=== PATIENT | male | born 1935 | race Caucasian/White ===

== ENCOUNTER 2021-10-21 17:39 | Inpatient (IN) | payer MEDICARE ==
[~2021-10-21] VITALS: Ht 177.8 cm; Wt 91.8 kg
[2021-10-21 17:42] VITALS: BP 96/46
[2021-10-21 18:12] LABS: ABSOLUTE MONOCYTES 0.7 thou/uL (0.0-1.2); ABSOLUTE NEUTROPHILS 8.7 thou/uL (1.6-8.1); BASOPHILS 0.4 %; HEMATOCRIT 30.7 % (42.0-52.0); HEMOGLOBIN 9.9 gm/dL (14.0-18.0); LYMPHOCYTES 9.2 %; MCH 29.5 pg (26.0-34.0); MCHC 32.2 g/dL (28.0-37.0); MCV 91.8 fL (80.0-100.0); MONOCYTES 6.9 %; MPV 7.7 fl. (7.2-11.1); NUCLEATED RBCS 0 /100WBC; PLATELET COUNT* 241 thou/uL (150-400); POLYS 83.5 %; RBC 3.34 mil/uL (4.50-6.00); RDW-CV 13.3 % (10.5-14.5); WBC 10.5 thou/uL (4.0-11.0)
[2021-10-21 18:21] LABS: CALCIUM 9.1 mg/dL (8.5-10.1); CREATININE 3.6 mg/dL (0.6-1.3); POTASSIUM 4.1 mmol/L (3.5-5.1)
[2021-10-21] MEDS ORDERED: NORVASC10 MG PO (18:24)
[2021-10-21] MEDS ORDERED: ASA81BEC PO (18:24)
[2021-10-21] MEDS ORDERED: COLACE100 MG PO (18:25)
[2021-10-21] MEDS ORDERED: PLAVIX 75 MG TA75 MG PO (18:25)
[2021-10-21] MEDS ORDERED: CALCIUM + VITA1 EACH PO (18:25)
[2021-10-21] MEDS ORDERED: DEPAKOTE250 MG PO (18:26)
[2021-10-21] MEDS ORDERED: NEURONTIN300 MG PO ×2 (18:26→18:27)
[2021-10-21] MEDS ORDERED: FLOMAX0.4 MG PO (18:26)
[2021-10-21] MEDS ORDERED: NEXIUM40 MG PO (18:26)
[2021-10-21] MEDS ORDERED: NEURONTIN 400M400 M2 PO (18:27)
[2021-10-21] MEDS ORDERED: GLIPIZIDE 10 MG10 MG PO (18:27)
[2021-10-21] MEDS ORDERED: HUMALOG100 UNIT/1 SUBQ (18:28)
[2021-10-21] MEDS ORDERED: HYDRALAZINE HC100 MG PO (18:28)
[2021-10-21] MEDS ORDERED: ISOSORBIDE MON120 MG PO (18:29)
[2021-10-21] MEDS ORDERED: LANTUS SOL100 UNIT/1 SUBQ (18:30)
[2021-10-21] MEDS ORDERED: SIMVASTATIN80 MG PO (18:31)
[2021-10-21] MEDS ORDERED: TRAMADOL 50 MG50 MG PO (18:31)
[2021-10-21] MEDS ORDERED: LEVOFLOXACIN500 MG PO (18:31)
[2021-10-21] MEDS ORDERED: KLOR-CON M2020 MEQ PO (18:31)
[2021-10-21 18:34] LABS: ALBUMIN 2.1 g/dL (3.4-5.0); TOTAL BILIRUBIN 0.4 mg/dL (<0.1-1.0); TOTAL PROTEIN 7.6 g/dL (6.4-8.2)
[2021-10-21 23:13] LABS: URINE BILIRUBIN NEGATIVE (Negative); URINE BLOOD 1+ (Negative); URINE CLARITY CLEAR; URINE COLOR YELLOW; URINE GLUCOSE-RANDOM NEGATIVE (Negative); URINE KETONES TRACE (Negative); URINE PROTEIN 1+ (Negative); URINE UROBILINOGEN 0.2 E.U./dl (0.2-1.0)
[2021-10-21 23:14] LABS: URINE LEUKOCYTES-REFLEX 3+ (Negative); URINE NITRITE-REFLEX POSITIVE (Negative)
[2021-10-21 23:20] VITALS: BP 114/41
[2021-10-21 23:22] LABS: CASTS None Seen /LPF (None Seen); CRYSTALS None Seen /LPF (None Seen); MUCUS 0-3 Light strn/LPF (None Seen); SQUAMOUS 4-10 Moderate /LPF (0-3); URINE RBC 3-10 Few /HPF (0-2); URINE WBC-REFLEX >25 Many /HPF (0-5)
[2021-10-21 23:45] VITALS: BP 119/47
--- NOTE | 2021-10-21 23:45 | NUR ---
RECEIVED REPORT FROM ER, PT TO ROOM. PT ORIENTED TO SELF ONLY. COULD NOT SAY . PT STIFF WITH DIFFICULTY IN MOVING HIM. INCONT OF URINE. NO SKIN BREAK DOWN TO BUTTOCKS. WOUND NOTED TO LATERAL RT HEEL. HOB ELEVATED. HAVING FREQ MOIST NON-PROD COUGH, RA SAT 93%. TELEMETRY APPLIED SHOWING A-FIB.
--- NOTE | 2021-10-22 06:14 | NUR ---
AWAKE FREQ TONIGHT. TAKING PO FLUIDS WELL. NO CHANGE IN ASSESSMENT.
[2021-10-22 08:00] VITALS: BP 196/61
--- NOTE | 2021-10-22 09:31 | EKG ---
[place] [address] ELECTROCARDIOGRAM REPORT Name: SANDRA SIDDIQI Room: [address] ADM IN [facility].#: [id number] Admission: 10/21/21 Attend Phys: Varun Bradshaw Discharge: Date of : 37 Date of Service: 10/21/21 1740 Report #: [id number] THIS REPORT FOR: //name// [facility] ED Test Date: 2021-10-21 Test Time: 17:40:10 Pat Name: SANDRA SIDDIQI Department: Room: [facility] Gender: M Rv Detailer: : 1935 Requested By: Xavier Burk Order Number: [id number] MD: Jose Rafael Haider Measurements Intervals [place] Rate: 102 P: TN: QRS: -20 QRSD: 91 T: 136 QT: 316 QTc: 412 Interpretive Statements Normal Sinus Rhythm with APCs Borderline left axis deviation Borderline repolarization abnormality No previous ECG available for comparison Electronically Signed On 10-22-2021 9:30:59 PROFILE SAW OPERATOR by Jose Rafael Haider [email or web address] <ELECTRONICALLY SIGNED> By: Brigitte Haider MD, LOCATED WITHIN [facility] 10/22/21 0930 1740 1740 Brigitte Haider MD, LOCATED [facility] /EPI
[2021-10-22 11:45] VITALS: BP 145/42
[2021-10-22 16:08] VITALS: BP 116/56
[2021-10-22 16:13] LABS: ABSOLUTE BASOPHILS 0.1 thou/uL (0.0-0.2); ABSOLUTE MONOCYTES 0.6 thou/uL (0.0-1.2); ABSOLUTE NEUTROPHILS 8.5 thou/uL (1.6-8.1); BASOPHILS 0.5 %; EOSINOPHILS 0.4 %; HEMATOCRIT 27.7 % (42.0-52.0); HEMOGLOBIN 9.1 gm/dL (14.0-18.0); LYMPHOCYTES 10.1 %; MCH 29.9 pg (26.0-34.0); MCHC 32.7 g/dL (28.0-37.0); MCV 91.3 fL (80.0-100.0); MONOCYTES 5.9 %; MPV 7.9 fl. (7.2-11.1); NUCLEATED RBCS 0 /100WBC; PLATELET COUNT* 226 thou/uL (150-400); POLYS 83.1 %; RBC 3.04 mil/uL (4.50-6.00); RDW-CV 13.3 % (10.5-14.5); WBC 10.3 thou/uL (4.0-11.0)
[2021-10-22 16:26] LABS: CALCIUM 8.6 mg/dL (8.5-10.1); CREATININE 3.1 mg/dL (0.6-1.3); POTASSIUM 3.6 mmol/L (3.5-5.1); TOTAL BILIRUBIN 0.4 mg/dL (<0.1-1.0); TOTAL PROTEIN 7.1 g/dL (6.4-8.2)
--- NOTE | 2021-10-22 19:57 | NUR ---
Assumed care of patient 0730. Patient is somewhat angry and confused. Refused to eat any of his meals today. Drinks coffee and tea. Ate very little when fed. Patient doesnt move much on his on. Reposition every 2 hours. Patient is incontinent of urine. Continue to check accuchecks. Quiet day.
[2021-10-22 20:00] VITALS: BP 142/76
[2021-10-23 00:12] VITALS: BP 177/63
--- NOTE | 2021-10-23 05:40 | NUR ---
ASSUMED PT CARE AT APPROX 1930. PT IS AWAKE, ORIENTED TO SELF ONLY, CONFUSED MOST OF THE TIME AND FORGETFUL. PT IS NOT IN DISTRESS, NO DESATURATIONS NOTED ON ROOM AIR. PT IS TRACING AFIB ON THE [employer] [facility]. PT IS INCONTINENT OF BLADDER AND BOWEL, PT IS KEPT CLEAN AND DRY, POSITION CHANGES DONE. PT IS CLOSELY MONITORED, HIGH FALL PRECAUTIONS IN PLACE.
[2021-10-23 05:48] VITALS: BP 145/56
[2021-10-23 08:00] VITALS: BP 167/58
--- NOTE | 2021-10-23 08:58 | NUR ---
Patient refuses to eat. Insulin not given.
[2021-10-23 09:21] LABS: HEMATOCRIT 29.6 % (42.0-52.0); HEMOGLOBIN 9.5 gm/dL (14.0-18.0); RBC 3.15 mil/uL (4.50-6.00); RDW-CV 13.7 % (10.5-14.5); WBC 10.9 thou/uL (4.0-11.0)
[2021-10-23 09:39] LABS: CALCIUM 8.7 mg/dL (8.5-10.1); CREATININE 2.9 mg/dL (0.6-1.3); POTASSIUM 3.6 mmol/L (3.5-5.1)
[2021-10-23 11:35] VITALS: BP 124/45
[2021-10-23 16:08] VITALS: BP 104/56
--- NOTE | 2021-10-23 19:53 | NUR ---
Assumed care at 0730. Patient quiet, confused. Knows his name. Unaware of where he is or date/time. Patients iv fluids decreased to 75ml per hour today. Patient is a poor eater. Will be getting supplements 3 times a day. Did drink coffee, tea, and orange juice. Reposition every 2 hours, and diaper changed every 2 hours. No bm today. Patient is a DNR.
[2021-10-23 20:00] VITALS: BP 157/56
[2021-10-24] VITALS: BP 155/58
[2021-10-24 04:00] VITALS: BP 152/55
[2021-10-24 05:45] LABS: HEMATOCRIT 24.5 % (42.0-52.0); HEMOGLOBIN 7.9 gm/dL (14.0-18.0); MCH 29.9 pg (26.0-34.0); MCHC 32.2 g/dL (28.0-37.0); MCV 92.7 fL (80.0-100.0); MPV 8.1 fl. (7.2-11.1); RBC 2.64 mil/uL (4.50-6.00); RDW-CV 13.7 % (10.5-14.5)
[2021-10-24 06:04] LABS: CALCIUM 7.8 mg/dL (8.5-10.1); CREATININE 2.6 mg/dL (0.6-1.3); POTASSIUM 3.7 mmol/L (3.5-5.1)
--- NOTE | 2021-10-24 07:51 | NUR ---
ASSUMED PT CARE AT APPROX 1930. PT IS AWAKE, ORIENTED TO SELF AND SOMETIMES TO PLACE-IS CONFUSED MOST OF THE TIME. PT IS NOT IN DISTRESS, NO DESATURATIONS NOTED ON ROOM AIR. PT IS INCONTINENT-PT IS KEPT CLEAN AND DRY AND IS TURNED FREQUENTLY. NO ACUTE CHANGES THIS SHIFT. CALL LIGHT WITHIN REACH. HOURLY ROUNDING DONE FOR PT SAFETY. HIGH FALL PRECAUTIONS IN PLACE.
[2021-10-24 08:00] VITALS: BP 122/47
--- NOTE | 2021-10-24 09:15 | NUR ---
Nutrition: Pt admitted with ARF. Consult for poor appetite. Pt with h/o dementia, HTN. He is confused. Chopped diet ordered. Nepro oral supplement is ordered. Pressure ulcer on Rt lateral heel. Labs: Na 150, BG 98, albumin 2, prealb 10.9, BUN 47, cr 2.6, GFR 24. MedS: insulin, glipizide, aspirin. Continue Nepro supplement. Encourage good meal intake. Wt: 193#. Will follow wts and po intake. Mild risk at this time. Will follow up 10/28/21.
--- NOTE | 2021-10-24 11:37 | NUR ---
WOUND NURSE: PATIENT SEEN TO ADDRESS WOUND ON RIGHT HEEL. ACHILLES WITH OLD SURGICAL SCAR AND SUSPECTED DFU ON THE HEEL MEASURING 3.3 X 2.2 CM. WOUND BED WITH SOFT BLACKENED ESCHAR IN PLACE AND SMALL AMOUNT OF DARK RED DRAINAGE. CLEANSED WITH SOAP AND WATER, RINSED, THEN PATTED DRY. APPLIED SKIN PREP TO INTACT PERIWOUND TISSUE. APPLIED AQUACEL AG UNDER ABD. WRAPPED WITH KERLEX ROLL GAUZE UNDER LIGHT VAIBHAV WRAP. PATIENT IS CONFUSED AND NOT TEACHEABLE. RECOMMENDED AND DR. SMITH APPROVED PODIATRY CONSULT WITH DR. CORREIA. DR. CORREIA NOTIFIED BY ME.
[2021-10-24 12:53] VITALS: BP 146/56
--- NOTE | 2021-10-24 13:40 | NUR ---
CM ASSESSMENT: PT A&O TO SELF AND HAS DX OF DEMENTIA. CM CONTACTED PT'S SON/MARILU MCGINNIS AND HE INFORMS THAT THE PT CURRENTLY RESIDES AT [facility] ON THE MEMORY CARE UNIT. PT USES A WHEELCHAIR FOR MOBILITY. PLAN IS FOR THE PT TO RETURN TO [facility]ORY CARE UNIT AT D/C. SHOULD PT NEED IV ABT'S AT D/C PT WILL NEED TO D/C TO SNF THEY ARE UNABLE TO DISPENSE IV ABT'S ON THE MEMORY CARE UNIT. CM CALLED AND LEFT A VOICEMAIL WITH [facility] ADMISSIONS TO DISCUSS DC PLANNING FOR THE PT. CM WILL REMAIN AVAILABLE TO ASSIST AND FOLLOW NEEDED. [facility] PHONE: [phone]
[2021-10-24 14:07] LABS: HEMATOCRIT 25.8 % (42.0-52.0); HEMOGLOBIN 8.6 gm/dL (14.0-18.0)
[2021-10-24 16:42] VITALS: BP 172/58
[2021-10-24 20:00] VITALS: BP 107/53
[2021-10-25 00:41] VITALS: BP 121/71
[2021-10-25 04:26] VITALS: BP 153/52
--- NOTE | 2021-10-25 05:23 | NUR ---
ASSUMED PT CARE AT APPROX 1930. PT IS AWAKE, ORIENTED TO SELF, CONFUSED MOST OF THE TIME. PT IS NOT IN DISTRESS, NO DESATURATIONS NOTED ON ROOM AIR. PT IS INCONTINENT-PT IS KEPT CLEAN AND DRY AND IS TURNED FREQUENTLY. NO ACUTE CHANGES THIS SHIFT. CALL LIGHT WITHIN REACH. HOURLY ROUNDING DONE FOR PT SAFETY. HIGH FALL PRECAUTIONS IN PLACE.
[2021-10-25 08:00] VITALS: BP 121/31
--- NOTE | 2021-10-25 10:15 | NUR ---
PLAN OF CARE: PLAN REMAINS FOR THE PT TO RETURN TO HIS MEMORY CARE UNIT AT THE [facility], [place], OPERATED BY [facility] WHEN MEDICALLY STABLE. NO OTHER CM D/C PLANNING NEEDS ANTICIPATED. CM WILL REMAIN AVAILABLE TO ASSIST AND FOLLOW NEEDED.
[2021-10-25 12:21] VITALS: BP 158/64
[2021-10-25 17:15] VITALS: BP 148/49
[2021-10-25 21:04] VITALS: BP 146/56
[2021-10-26 02:25] VITALS: BP 155/54
[2021-10-26 04:00] VITALS: BP 142/52
[2021-10-26 04:51] LABS: HEMATOCRIT 21.8 % (42.0-52.0); HEMOGLOBIN 7.1 gm/dL (14.0-18.0); MCH 30.6 pg (26.0-34.0); MCHC 32.6 g/dL (28.0-37.0); MCV 93.7 fL (80.0-100.0); MPV 8.1 fl. (7.2-11.1); RBC 2.33 mil/uL (4.50-6.00); RDW-CV 14.3 % (10.5-14.5); WBC 8.8 thou/uL (4.0-11.0)
[2021-10-26 05:13] LABS: CALCIUM 7.7 mg/dL (8.5-10.1); CREATININE 2.2 mg/dL (0.6-1.3)
[2021-10-26 05:22] LABS: POTASSIUM 2.9 mmol/L (3.5-5.1)
[2021-10-26 08:00] VITALS: BP 145/57
--- NOTE | 2021-10-26 08:37 | NUR ---
PT IS ABLE TO COMMUNICATE HIS NEEDS TO STAFF WITH SOME DIFFICULTY; HE IS CONFUSED AND IMPULSIVE. PT HAS ALSO BEEN UNCOOPERATIVE ON SEVERAL OCCASIONS DURING WALL CLEANER; REFUSING MEDICATIONS, TURNS, AND CARES. HE HAS DENIED THE NEED FOR PAIN MEDICATION UP TO 0700 THIS MORNING. POSSIBLE MRI OF HIS RT FOOT LATER TODAY.
--- NOTE | 2021-10-26 09:56 | NUR ---
WOUND NURSE: PATIENT SEEN FOR FOLLOW UP DRESSING CHANGE TO RIGHT HEEL. INSIGNIFICANT CHANGE IN WOUND CHARACTERISTICS. PRESENTS WITH BLACKENED ESCHAR, SCANT LIGHT BROWN DRAINAGE ON THE OLD DRESSING. NO PERIWOUND REDNESS, WARMTH, OR INDURATION. CLEANSED WITH SOAP AND WATER, RINSED, THEN PATTED DRY. SKIN PREP TO PERIWOUND. APPLIED AQUACEL AG UNDER ABD, THEN WRAPPED WITH KERLEX ROLL GAUZE UNDER LIGHT VAIBHAV WRAP. PATIENT REMAINS NONTEACHEABLE. HEELS PLACED OFF MATTRESS USING PILLOW.
--- NOTE | 2021-10-26 10:42 | NUR ---
PLAN OF CARE: PLAN FOR THE PT TO RETURN TO HIS MEMORY CARE BED AT [facility] WHEN MEDICALLY STABLE. OTH CM D/C PLANNING NEEDS TBD. CM WILL REMAIN AVAILABLE TO ASSIST AND FOLLOW NEEDED.
[2021-10-26 11:08] VITALS: BP 120/52
[2021-10-26 17:07] VITALS: BP 148/58
[2021-10-26 21:09] VITALS: BP 151/54
[2021-10-26 22:21] LABS: MAGNESIUM 1.7 mg/dL (1.8-2.4); POTASSIUM 3.6 mmol/L (3.5-5.1)
[2021-10-27 00:20] VITALS: BP 114/72
[2021-10-27 04:39] VITALS: BP 100/49
--- NOTE | 2021-10-27 05:32 | NUR ---
PT IS ABLE TO COMMUNICATE HIS NEEDS TO STAFF WITH SOME DIFFICULTY; HE IS FORGETFUL AND CONFUSED OFTEN. HE HAS BEEN UNCOOPERATIVE, REFUSING CARES AND MEDS, A FEW TIMES OVERNIGHT. HE HAS DENIED THE NEED FOR PAIN MEDICATION UP TO THIS TIME.
[2021-10-27 05:56] LABS: HEMATOCRIT 21.8 % (42.0-52.0); HEMOGLOBIN 7.2 gm/dL (14.0-18.0); MCHC 33.2 g/dL (28.0-37.0); MCV 90.4 fL (80.0-100.0); RBC 2.41 mil/uL (4.50-6.00); RDW-CV 13.4 % (10.5-14.5); WBC 8.6 thou/uL (4.0-11.0)
[2021-10-27 06:11] LABS: CALCIUM 7.6 mg/dL (8.5-10.1); CREATININE 2.2 mg/dL (0.6-1.3); POTASSIUM 3.7 mmol/L (3.5-5.1)
[2021-10-27 08:17] VITALS: BP 144/51
[2021-10-27 12:00] VITALS: BP 145/47
[2021-10-27 16:00] VITALS: BP 129/46
--- NOTE | 2021-10-27 18:44 | NUR ---
PT IS ONLY A&O TO SELF, PT IS ON RM . PT HAS LT UPPER ARM IV. PT HAS WOUND ON RT HEAL OF FOOT. PT NEEDS STOOL SAMPLE DID NOT HAVE A BM THIS SHIFT. PT IS RESTING IN BED WITH TV ON AND CALL LIGHT IN REACH.
[2021-10-27 20:44] VITALS: BP 156/37
[2021-10-28 01:01] VITALS: BP 178/74
[2021-10-28 05:28] VITALS: BP 150/55
--- NOTE | 2021-10-28 05:52 | NUR ---
PT ALERT TO SELF, SITUATION. Q2 TURN, BEDREST, FALL PRECAUTIONS IN PLACE. HE IS COMPLETELY INCONTINENT OF B/B. NO BM THIS SHIFT. HE IS A MAX ASSIST IN BED AND IS SOMEWHAT RELUCTANT TO PARTICIPATE IN CARE (BLOOD PRESSURE CUFF, MEDS ETC) BUT [facility] HE RECEIVED ALL MEDS SCHEDULED.
[2021-10-28 07:59] VITALS: BP 105/51
--- NOTE | 2021-10-28 10:10 | NUR ---
NUTRITION: REASSESSMENT. DISCHARGE PLANNED FOR TODAY, PER PROGRESS NOTES. WT UP SOME, 202#. LABS: BG 226-149, ALB 2, PREALB 10.9. UTI RESOLVED. ULCER ON HEEL. CONTINUE TO ENCOURAGE GOOD MEAL INTAKE, GOOD HYDRATION, HBV PROTEIN AT MEALS. ON INSULIN. MILD RISK.
[2021-10-28 12:10] VITALS: BP 138/77
--- NOTE | 2021-10-28 13:53 | NUR ---
PHYSICIAN INFORMS OF PLAN FOR THE PT TO D/C HOME TODAY. HOWEVER RN IN-CHARGE OF PT INFORMS THAT THE PT HAS ULTRASOUND CURRENTLY PENDING. CM HAS ARRANGED TRANSPORT FOR [phone] WITH [facility]. RN INFORMED OF THE NEED TO CALL BOTH THE FACILITY AND [facility] IF PT IS NOT ABLE TO D/C. CM WILL REMAIN AVAILABLE TO ASSIST AND FOLLOW NEEDED. [facility] PHONE: [phone] [facility] PHONE: [phone]
--- NOTE | 2021-10-28 15:52 | NUR ---
PT DC'D BACK TO [facility] , MID LINE DC'D IN LT UPPER ARM. US CAME BACK WITH NO ISSUES. PT REFUSED TO LET STAFF TAKE OFF DRESSING TO RT FOOT YELLING AND SCREAMING NO AND KICKING. DRESSING WAS PUT ON 10-27-[address] CORREIA. DRESSING IS DRY AND CLEAN. PT LEGAL NURSE CONSULTANT BY [facility]. REPORT CALLED IN TO LYN CARMONA AT [facility]. AT 15:35.
--- NOTE | 2021-10-31 09:57 | CON ---
[address] [address] CONSULTATION Name: SANDRA SIDDIQI Room: [address]#: [id number] Admission: 10/21/21 Attend Phys: Puja Black Discharge: 10/28/21 Date of : 37 Report #: [id number] THIS REPORT FOR: cc: JAIME SHEPHERD MD, MALATHI MD Arakelov,Dontrell Kramer MD ~ DATE OF CONSULTATION: 10/25/2021 REQUESTING PHYSICIAN: ____. REASON FOR CONSULTATION: Acute kidney injury and hypernatremia. HISTORY OF PRESENT ILLNESS: The patient is an 86-year-old gentleman with medical history significant for dementia. He was transferred here from his memory care facility due to progressive weakness, was found to be in acute kidney injury and having hypernatremia. SOCIAL HISTORY: No tobacco or alcohol abuse. FAMILY HISTORY: Unknown. REVIEW OF SYSTEMS: He is in no distress, is not ready for conversation. He has dementia. PHYSICAL EXAMINATION: GENERAL: He is awake, alert. VITAL SIGNS: His blood pressure 120/30, heart rate 64, afebrile. HEENT: Pupils are round. Oral mucosa dry. NECK: Supple. LUNGS: Clear. CARDIOVASCULAR: Regular rate. LOWER EXTREMITIES: No edema. ABDOMEN: Soft. LABORATORY DATA: Serum sodium 150, potassium 3.7, BUN 47 and creatinine 2.6, that is today. On admission, his creatinine was 3.6. ASSESSMENT: 1. Acute kidney injury due to volume depletion due to dementia. 2. Chronic kidney disease, stage is unknown. 3. Dementia. 4. Hypernatremia. [address] [address] CONSULTATION Name: SANDRA SIDDIQI Room: [address] IN ..#: [id number] Admission: 10/21/21 Attend Phys: Puja Black Discharge: 10/28/21 Date of : 37 Report #: [id number] PLAN: He received normal saline. Now, we will switch him to D5W to correct his serum sodium. Follow labs. <ELECTRONICALLY SIGNED> By: Dontrell Harman MD 10/31/21 0957 0932 1043Aclayton Harman MD /nt
== END 2021-10-28 16:06 | DRG 177 ==
LOC: M.ERS 17:39 → M.TBA-ER 20:15 → M.2W 20:15
PROVIDERS: Family Medicine; Internal Medicine; ADMIT Internal Medicine; ATTEND Internal Medicine
DX: J15.6 Pneumonia due to other Gram-negative bacteria (principal); N17.0 Acute kidney failure with tubular necrosis; N39.0 Urinary tract infection, site not specified; N18.4 Chronic kidney disease, stage 4 (severe); E87.0 Hyperosmolality and hypernatremia; I12.9 Hypertensive chronic kidney disease with stage 1 through stage 4 chronic kidney disease, or unspecified chronic kidney disease; E83.42 Hypomagnesemia; F03.90 Unspecified dementia, unspecified severity, without behavioral disturbance, psychotic disturbance, mood disturbance, and anxiety; L89.890 Pressure ulcer of other site, unstageable; L89.610 Pressure ulcer of right heel, unstageable; Z20.822 Contact with and (suspected) exposure to COVID-19